=== PATIENT | female | born 1990 | race Caucasian/White ===

== ENCOUNTER 2017-02-03 05:35 | Inpatient (IN) | payer MEDICARE ==
[2017-02-03 06:52] LABS: HEMOGLOBIN 11.1 gm/dl (12.3-15.3); RED BLOOD COUNT 4.42 M/UL (4.00-5.10); WHITE BLOOD COUNT 9.5 K/UL (4.5-11.0)
[2017-02-04 02:59] LABS: HEMOGLOBIN 10.5 gm/dl (12.3-15.3)
[2017-02-04] MEDS ORDERED: IBUPROFEN600 MG PO (14:17)
== END 2017-02-04 20:42 | disposition home or self-care (01) | DRG 774 ==
LOC: OB 05:35
PROVIDERS: Obstetrics & Gynecology; ADMIT Obstetrics & Gynecology
PROC: 10907ZC Drainage of Amniotic Fluid, Therapeutic from Products of Conception, Via Natural or Artificial Opening (ICD-10-PCS; principal; 2017-02-03)
PROC: 10E0XZZ Delivery of Products of Conception, External Approach (ICD-10-PCS; 2017-02-03)
DX: O99.824 Streptococcus B carrier state complicating childbirth (principal); O98.32 Other infections with a predominantly sexual mode of transmission complicating childbirth; Z3A.39 39 weeks gestation of pregnancy; Z37.0 Single live birth; O69.81X0 Labor and delivery complicated by cord around neck, without compression, not applicable or unspecified; O75.89 Other specified complications of labor and delivery; M54.9 Dorsalgia, unspecified; A63.0 Anogenital (venereal) warts; Z91.040 Latex allergy status; Z83.3 Family history of diabetes mellitus; Z80.9 Family history of malignant neoplasm, unspecified; Z82.49 Family history of ischemic heart disease and other diseases of the circulatory system; Z28.21 Immunization not carried out because of patient refusal
CPT/HCPCS: 36415; 51702; 81001; 82800; 85014; 85018; 85025; J2590; J2795; J3430; J7120